=== PATIENT | male | born 1990 | race Two or more races ===

== ENCOUNTER 2024-09-02 08:35 | Emergency (ER) | payer OTHER ==
[~2024-09-02] VITALS: Ht 172.7 cm; Wt 66.2 kg
[2024-09-02] MEDS ORDERED: ONDANSETRON HCL 2 MG/ML VIAL IV ONE (10:00)
[2024-09-02] MEDS ORDERED: 0.9 % SODIUM CHLORIDE 1,000 ML IV SCH (10:00)
[2024-09-02] MEDS ORDERED: MORPHINE SULFATE 2 MG/ML CARTRIDGE IV ONE (10:00)
[2024-09-02] MEDS ORDERED: ONDANSETRON HCL 2 MG/ML VIAL ONE (10:01)
[2024-09-02 10:36] LABS: HEMATOCRIT 46.7 % (39.0-48.0); HEMOGLOBIN 15.4 g/dL (13-16.00); MEAN CORPUSCULAR HEMOGLOBIN 26.7 pg (27.00-32.0); MEAN CORPUSCULAR HGB CONC 32.9 g/dl (32.0-36.0); PLATELET COUNT 294 K/uL (150-450); RED BLOOD COUNT 5.76 M/uL (4.00-6.00); RED CELL DISTRIBUTION WIDTH 13.9 % (11.5-14.5)
[2024-09-02 11:01] LABS: CALCIUM 9.8 mg/dL (8.5-10.1); GFR 85.03; POTASSIUM 4.42 mEq/L (3.5-5.1)
[2024-09-02] MEDS ORDERED: BUTALB/ACETAMINOPHEN/CAFFEINE 1 TAB TABLET PO ONE ×2 (11:59→12:00)
== END 2024-09-02 15:18 | disposition home or self-care (01) ==
LOC: ER 08:36
PROVIDERS: Emergency Medicine
DX: K29.70 Gastritis, unspecified, without bleeding (principal)